=== PATIENT | female | born 1990 | race Caucasian/White ===

== ENCOUNTER → 2016-12-13 | Outpatient (CLI) | payer OTHER ==
[2016-12-13 08:27] LABS: microscopic required? NO
[2016-12-13 08:49] LABS: GLUCOSE FASTING 81 mg/dL (70-110)
[2016-12-13 09:05] LABS: BASOPHIL % 0.4 % (0-2); PLATELET COUNT 209 x10^3mcL (130-400); RED CELL DISTRIBUTION WIDTH 13.9 % (11.5-14.5)
[2016-12-13 09:18] LABS: urine erythrocyte NEGATIVE (NEGATIVE)
== END | disposition home or self-care (01) ==
LOC: LB 07:43
DX: Z34.90 Encounter for supervision of normal pregnancy, unspecified, unspecified trimester (principal)

== ENCOUNTER → 2017-03-12 | Outpatient (CLI) | payer OTHER ==
[2017-03-12 09:35] LABS: BASOPHIL % 0.2 % (0-2); PLATELET COUNT 221 x10^3mcL (130-400); RED CELL DISTRIBUTION WIDTH 13.4 % (11.5-14.5)
[2017-03-12 10:24] LABS: GLUCOSE FASTING 81 mg/dL (70-110)
== END | disposition home or self-care (01) ==
LOC: LB 08:59
DX: Z34.90 Encounter for supervision of normal pregnancy, unspecified, unspecified trimester (principal)

== ENCOUNTER 2017-03-19 14:06 | Emergency (ER) | payer OTHER ==
[~2017-03-19] VITALS: Ht 157.5 cm; Wt 79.8 kg
[2017-03-19 14:11] VITALS: BP 119/76
== END 2017-03-19 16:03 | disposition home or self-care (01) ==
LOC: ED 14:06
DX: O26.893 Other specified pregnancy related conditions, third trimester (principal); S93.602A Unspecified sprain of left foot, initial encounter; Z3A.00 Weeks of gestation of pregnancy not specified; Z88.8 Allergy status to other drugs, medicaments and biological substances; X58.XXXA Exposure to other specified factors, initial encounter; Y99.8 Other external cause status; Y93.89 Activity, other specified; Y92.89 Other specified places as the place of occurrence of the external cause
CPT/HCPCS: Q0092

== ENCOUNTER → 2017-11-27 | Outpatient (CLI) | payer OTHER | END | disposition home or self-care (01) | LOC: CT 11:33 | PROC: BW28ZZZ Computerized Tomography (CT Scan) of Head (ICD-10-PCS; principal; 2017-11-27) | DX: R51 Headache (principal) ==

== ENCOUNTER → 2018-04-22 | Outpatient (CLI) | payer OTHER | END | disposition home or self-care (01) | LOC: US 17:23 | PROC: BW4GZZZ Ultrasonography of Pelvic Region (ICD-10-PCS; principal; 2018-04-22) | DX: R10.2 Pelvic and perineal pain (principal) | CPT/HCPCS: Q0092 ==